=== PATIENT | female | born 1980 | race Hispanic/Latino ===

== ENCOUNTER 2018-06-06 18:40 | Emergency (ER) | payer BC ==
[2018-06-06] MEDS ORDERED: NA CHLORIDE 0.9% 500 ML ONE (20:41)
[2018-06-06 21:00] LABS: Absolute Lymphocytes (CBC) 4.3 K/uL (0.7-4.9); Absolute Monocytes 0.5 K/uL (0.1-1.3); Absolute Neutrophil 5.2 K/uL (1.8-8.0); Basophils % 0.5 % (0-1.3); Eosinophils % 1.2 % (0-4.4); Hematocrit 34.7 % (36.0-45.0); Lymphocytes % 42.4 % (15.3-44.8); MPV 7.7 fL (7.6-11.3); Monocytes % 4.9 % (3.3-12.3); RBC Red Blood Cell Count 4.89 M/uL (3.86-4.86)
[2018-06-06 21:04] LABS: Protime INR 0.92
[2018-06-06] MEDS ORDERED: ASPIRIN 81 MG CHEWABLE TABLET ONE (21:05)
[2018-06-06 21:07] LABS: Urine Blood 1+ (NEG); Urine Glucose NEGATIVE (NEG); Urine Protein NEGATIVE (NEG); Urine Specific Gravity 1.025 (1.005-1.030); Urine pH 5.5 (5.0-7.0)
[2018-06-06 21:12] LABS: ALT/SGPT 63 U/L (12-78); AST/SGOT 27 U/L (15-37); Albumin 3.7 g/dL (3.4-5.0); Alkaline Phosphatase 104 U/L (45-117); BUN Blood Urea Nitrogen 16 mg/dL (7-18); Bicarbonate 27 mmol/L (21-32); Bilirubin Direct 0.1 mg/dL (0-0.2); Bilirubin Total 0.5 mg/dL (0.2-1.0); Glucose Level 94 mg/dL (74-106); Lipase 133 U/L (73-393); Magnesium 2.1 mg/dL (1.8-2.4); NT PRO-BNP 7 pg/mL (<125); Potassium 4.1 mmol/L (3.5-5.1); Protein, Total 8.1 g/dL (6.4-8.2); Sodium Level 138 mmol/L (136-145); Troponin (Emerg Dept Use Only) < 0.02 ng/mL (0.0-0.045)
--- NOTE | 2018-06-06 21:44 | RAD REPORT ---
EXAM DESCRIPTION: RAD - Chest Single View - 06/06/2018 9:29 pm CLINICAL HISTORY: CHEST PAIN Chest pain. COMPARISON: Chest Single View dated 11/02/2016 FINDINGS: Portable technique limits examination quality. The lungs are grossly clear. The heart is normal in size. No displaced fractures. IMPRESSION: No acute intrathoracic process suspected.
--- NOTE | 2018-06-06 21:56 | ER ---
Nurse's Notes [facility] Name: Karina Renteria Age: 38 yrs Sex: Female : 1980 Arrival Date: 06/06/2018 Time: 18:41 Bed 24 Private MD: Obey Murillo Diagnosis: Chest pain, unspecified-wall;Anemia, unspecified Presentation: 06/06 18:45 Presenting complaint: Patient states: Upper abdominal pain that radiates to chest for 2 aj weeks. Patient also reports tingling in left hand that started 1 week ago. Transition of care: patient was not received from another setting of care. Onset of symptoms was May 26, 2018. Risk Assessment: Do you want to hurt yourself or someone else? Patient reports no desire to harm self or others. Initial Sepsis Screen: Does the patient meet any 2 criteria? No. Patient's initial sepsis screen is negative. Does the patient have a suspected source of infection? No. Patient's initial sepsis screen is negative. Care prior to arrival: None. 18:45 Method Of Arrival: Ambulatory aj 18:45 Acuity: LES 3 aj Triage Assessment: 18:47 General: Appears in no apparent distress. comfortable, Behavior is calm, cooperative, aj appropriate for age. Pain: Complains of pain in chest and abdomen. Neuro: Level of Consciousness is awake, alert, obeys commands, Oriented to person, place, time, situation, Appropriate for age. Neuro: Reports paresthesias in left hand. Cardiovascular: Reports chest pain. Respiratory: Reports shortness of breath Airway is patent Respiratory effort is even, unlabored, Respiratory pattern is regular, symmetrical, Onset: The symptoms/episode began/occurred gradually, the patient has mild shortness of breath. GI: Abdomen is obese, Reports upper abdominal pain. Derm: Skin is intact, is healthy with good turgor, Skin is pink, warm \T\ dry. normal. 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 - Social history:: Smoking status: Patient/guardian denies using tobacco. - Ebola Screening: : Patient negative for fever greater than or equal to 101.5 degrees Fahrenheit, and additional compatible Ebola Virus Disease symptoms Patient denies exposure to infectious person Patient denies travel to an Ebola-affected area in the 21 days before illness onset No symptoms or risks identified at this time. - Family history:: not pertinent. Screenin:37 Abuse screen: Denies threats or abuse. Denies injuries from another. Nutritional rv screening: No deficits noted. Tuberculosis screening: No symptoms or risk factors identified. Fall Risk None identified. Assessment: 19:36 General: Appears in no apparent distress. comfortable, Behavior is calm, cooperative. rv Pain: Complains of pain in abdomen and chest. Neuro: Level of Consciousness is awake, alert, obeys commands, Oriented to person, place, time, situation. Cardiovascular: Rhythm is regular. Respiratory: Airway is patent Breath sounds are clear bilaterally. GI: No signs and/or symptoms were reported involving the gastrointestinal system. : No signs and/or symptoms were reported regarding the genitourinary system. EENT: No signs and/or symptoms were reported regarding the EENT system. Derm: Skin is intact. Musculoskeletal: No signs and/or symptoms reported regarding the musculoskeletal system. Vital Signs: 18:47 BP 146 / 85; Pulse 98; Resp 20; Temp 98.2; Pulse Ox 99% on R/A; Weight 90.72 kg; Height aj 5 ft. 5 in. (165.10 cm); 19:30 BP 105 / 73; Pulse 84; Resp 16; Pulse Ox 99% on R/A; rv 20:00 BP 100 / 66; Pulse 84; Resp 15 S; Pulse Ox 98% on R/A; rv 20:45 BP 100 / 57; Pulse 79; Resp 18; Pulse Ox 99% on R/A; rv 21:00 BP 109 / 71; Pulse 84; Resp 17; Pulse Ox 99% on R/A; rv 21:30 BP 101 / 53; Pulse 77; Resp 19 S; Pulse Ox 99% on R/A; rv 21:45 BP 107 / 54; Pulse 82; Resp 16 S; Pulse Ox 99% on R/A; rv 18:47 Body Mass Index 33.28 (90.72 kg, 165.10 cm) ED Course: 18:41 Patient arrived in ED. rg4 18:42 Obey Murillo MD is Private Physician. rg4 18:46 Triage completed. aj 18:47 Arm band placed on left wrist. Patient placed in an exam room. aj 19:12 Tommy Singh MD is Attending Physician. [facility] 19:37 Patient has correct armband on for positive identification. Bed in low position. Call rv light in reach. Side rails up X 1. Adult w/ patient. phototypesetting equipment monitor on. Pulse ox on. NIBP on. 20:40 Inserted saline lock: 20 gauge in left antecubital area, using aseptic technique. Blood rv collected. 21:22 X-ray completed. Portable x-ray completed in exam room. Patient tolerated procedure ag1 well. 21:29 XRAY Chest (1 view) In Process Unspecified. EDMS 21:56 Obey Murillo MD is Referral Physician. alek 21:56 Jerzy Chavarria MD is Referral Physician. alek 22:07 No provider procedures requiring assistance completed. IV discontinued, bleeding rv controlled, No redness/swelling at site. Pressure dressing applied. Administered Medications: 20:40 Drug: NS 0.9% 500 ml Route: IV; Rate: bolus; Site: left antecubital; rv 20:55 Drug: Aspirin 81 mg Route: PO; rv Outcome: 21:56 Discharge ordered by . alek 22:07 Discharged to home ambulatory. rv 22:07 Condition: good 22:07 Discharge instructions given to patient, family, Instructed on discharge instructions, follow up and referral plans. Demonstrated understanding of instructions, follow-up care, medications, Prescriptions given X 1. 22:07 Patient left the ED. rv Signatures: Dispatcher [employer] Elenita Garcia, RN RN Tommy Gar MD MD cha Gallaway, Ashley ag1 Joanne Flores rg4 Allen Mosquera RN RN rv
--- NOTE | 2018-06-06 21:57 | EDPHYS ---
Physician Documentation [facility] Name: Karina Renteria Age: 38 yrs Sex: Female : 1980 Arrival Date: 06/06/2018 Time: 18:41 Bed 24 Private MD: Obey Murillo ED Physician Tommy Singh HPI: 06/06 20:26 This 38 yrs old Female presents to ER via Ambulatory with complaints of alek Numbness Of Arm, Breathing Difficulty, Back Pain. 20:26 The patient or guardian complains of pain, that is acute. alek 20:27 The complaints affect the left hand. Context: The problem was sustained at home. Onset: alek The symptoms/episode began/occurred 5 day(s) ago. Treatment prior to arrival includes: no previous treatment. The patient or guardian reports chest pain that is located primarily in the anterior chest wall, left. The pain does not radiate. 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 - Social history:: Smoking status: Patient/guardian denies using tobacco. - Ebola Screening: : Patient negative for fever greater than or equal to 101.5 degrees Fahrenheit, and additional compatible Ebola Virus Disease symptoms Patient denies exposure to infectious person Patient denies travel to an Ebola-affected area in the 21 days before illness onset No symptoms or risks identified at this time. - Family history:: not pertinent. ROS: 20:27 Constitutional: Negative for fever, chills, and weight loss, Eyes: Negative for injury, alek pain, redness, and discharge, ENT: Negative for injury, pain, and discharge, Neck: Negative for injury, pain, and swelling, Respiratory: Negative for shortness of breath, cough, wheezing, and pleuritic chest pain, Abdomen/GI: Negative for abdominal pain, nausea, vomiting, diarrhea, and constipation, Back: Negative for injury and pain, : Negative for injury, bleeding, discharge, and swelling, MS/Extremity: Negative for injury and deformity, Skin: Negative for injury, rash, and discoloration, Psych: Negative for depression, anxiety, suicide ideation, homicidal ideation, and hallucinations, Allergy/Immunology: Negative for hives, rash, and allergies, Endocrine: Negative for neck swelling, polydipsia, polyuria, polyphagia, and marked weight changes, Hematologic/Lymphatic: Negative for swollen nodes, abnormal bleeding, and unusual bruising. 20:27 Cardiovascular: Positive for chest pain. Exam: 20:27 Constitutional: This is a well developed, well nourished patient who is awake, alert, alek and in no acute distress. Head/Face: Normocephalic, atraumatic. Eyes: Pupils equal round and reactive to light, extra-ocular motions intact. Lids and lashes normal. Conjunctiva and sclera are non-icteric and not injected. Cornea within normal limits. Periorbital areas with no swelling, redness, or edema. ENT: Nares patent. No nasal discharge, no septal abnormalities noted. Tympanic membranes are normal and external auditory canals are clear. Oropharynx with no redness, swelling, or masses, exudates, or evidence of obstruction, uvula midline. Mucous membranes moist. Neck: Trachea midline, no thyromegaly or masses palpated, and no cervical lymphadenopathy. Supple, full range of motion without nuchal rigidity, or vertebral point tenderness. No Meningismus. Chest/axilla: Normal chest wall appearance and motion. Nontender with no deformity. No lesions are appreciated. Cardiovascular: Regular rate and rhythm with a normal S1 and S2. No gallops, murmurs, or rubs. Normal PMI, no JVD. No pulse deficits. Respiratory: Lungs have equal breath sounds bilaterally, clear to auscultation and percussion. No rales, rhonchi or wheezes noted. No increased work of breathing, no retractions or nasal flaring. Abdomen/GI: Soft, non-tender, with normal bowel sounds. No distension or tympany. No guarding or rebound. No evidence of tenderness throughout. Back: No spinal tenderness. No costovertebral tenderness. Full range of motion. Skin: Warm, dry with normal turgor. Normal color with no rashes, no lesions, and no evidence of cellulitis. MS/ Extremity: Pulses equal, no cyanosis. Neurovascular intact. Full, normal range of motion. Neuro: Awake and alert, GCS 15, oriented to person, place, time, and situation. Cranial nerves II-XII grossly intact. Motor strength 5/5 in all extremities. Sensory grossly intact. Cerebellar exam normal. Normal gait. Psych: Awake, alert, with orientation to person, place and time. Behavior, mood, and affect are within normal limits. 20:27 Musculoskeletal/extremity: ROM: intact in all extremities, full active range of motion, full passive range of motion, Circulation is intact in all extremities. Sensation intact. Compartment Syndrome exam of affected extremity: is normal. DVT Exam: No signs of deep vein thrombosis. no pain, no swelling, no tenderness, negative Homans' sign noted on exam, no appreciated bluish discoloration, no erythema, no increased warmth. Vital Signs: 18:47 BP 146 / 85; Pulse 98; Resp 20; Temp 98.2; Pulse Ox 99% on R/A; Weight 90.72 kg; Height aj 5 ft. 5 in. (165.10 cm); 19:30 BP 105 / 73; Pulse 84; Resp 16; Pulse Ox 99% on R/A; rv 20:00 BP 100 / 66; Pulse 84; Resp 15 S; Pulse Ox 98% on R/A; rv 20:45 BP 100 / 57; Pulse 79; Resp 18; Pulse Ox 99% on R/A; rv 21:00 BP 109 / 71; Pulse 84; Resp 17; Pulse Ox 99% on R/A; rv 21:30 BP 101 / 53; Pulse 77; Resp 19 S; Pulse Ox 99% on R/A; rv 21:45 BP 107 / 54; Pulse 82; Resp 16 S; Pulse Ox 99% on R/A; rv 18:47 Body Mass Index 33.28 (90.72 kg, 165.10 cm) aj MDM: 19:12 Patient medically screened. [facility] 20:29 Data reviewed: vital signs, nurses notes, lab test result(s), EKG, radiologic studies, [facility] plain films. 06/06 20:26 Order name: Basic Metabolic Panel; Complete Time: 21:14 [facility] 06/06 20:26 Order name: CBC with Diff; Complete Time: 21:14 [facility] 06/06 20:26 Order name: LFT's; Complete Time: 21:14 [facility] 06/06 20:26 Order name: Magnesium; Complete Time: 21:14 [facility] 06/06 20:26 Order name: NT PRO-BNP; Complete Time: 21:14 [facility] 06/06 20:26 Order name: PT-INR; Complete Time: 21:14 [facility] 06/06 20:26 Order name: Troponin (emerg Dept Use Only); Complete Time: 21:14 [facility] 06/06 20:26 Order name: XRAY Chest (1 view); Complete Time: 21:48 [facility] 06/06 20:26 Order name: Lipase; Complete Time: 21:14 [facility] 06/06 20:26 Order name: D-Dimer; Complete Time: 21:14 [facility] 06/06 20:26 Order name: Urine Culture [facility] 06/06 20:52 Order name: Urine Dipstick--Ancillary (enter results); Complete Time: 21:14 ag4 06/06 20:52 Order name: Urine --Ancillary (enter results); Complete Time: 21:14 [facility] 06/06 20:26 Order name: EKG; Complete Time: 20:27 [facility] 06/06 20:26 Order name: Cardiac monitoring; Complete Time: 20:29 [facility] 06/06 20:26 Order name: EKG - Nurse/Tech; Complete Time: 20:30 [facility] 06/06 20:26 Order name: IV Saline Lock; Complete Time: 20:46 [facility] 06/06 20:26 Order name: Labs collected and sent; Complete Time: 20:46 [facility] 06/06 20:26 Order name: O2 Per Protocol; Complete Time: 20:46 [facility] 06/06 20:26 Order name: O2 Sat Monitoring; Complete Time: 20:46 [facility] 06/06 20:26 Order name: Urine Dipstick-Ancillary (obtain specimen); Complete Time: 20:47 [facility] 06/06 20:26 Order name: Urine Test (obtain specimen); Complete Time: 20:47 [facility] Administered Medications: 20:40 Drug: NS 0.9% 500 ml Route: IV; Rate: bolus; Site: left antecubital; rv 20:55 Drug: Aspirin 81 mg Route: PO; rv Disposition: 06/06/18 21:56 Discharged to Home. Impression: Chest pain, unspecified - wall, Anemia, unspecified. - Condition is Stable. - Discharge Instructions: Nonspecific Chest Pain, Chest Wall Pain, Chest Wall Pain, [id number], Nonspecific Chest Pain, [id number]-[id number], Aspirin and Your Heart. - Prescriptions for Pepcid 20 mg Oral Tablet - take 1 tablet by ORAL route every 12 hours for 10 days; 20 tablet. - Medication Reconciliation Form, Thank You Letter, Antibiotic Education, Prescription Opioid Use form. - Follow up: Obey Murillo; When: 2 - 3 days; Reason: Recheck today's complaints, Continuance of care, Re-evaluation by your physician. Follow up: Jerzy Chavarria; When: 2 - 3 days; Reason: Recheck today's complaints, Re-evaluation by your physician. - Problem is new. - Symptoms have improved. Signatures: Dispatcher [employer] EDElenita Floyd RN RN Tommy Gar MD MD cha Vicente, Ronaldo, RN RN rv Corrections: (The following items were deleted from the chart) 22:07 21:56 06/06/2018 21:56 Discharged to Home. Impression: Chest pain, unspecified - wall; rv Anemia, unspecified. Condition is Stable. Discharge Instructions: Nonspecific Chest Pain, Chest Wall Pain, Chest Wall Pain, [id number], Nonspecific Chest Pain, Masb-ez-[id number], Aspirin and Your Heart. Prescriptions for Pepcid 20 mg Oral Tablet - take 1 tablet by ORAL route every 12 hours for 10 days; 20 tablet. and Forms are Medication Reconciliation Form, Thank You Letter, Antibiotic Education, Prescription Opioid Use. Follow up: Obey Murillo; When: 2 - 3 days; Reason: Recheck today's complaints, Continuance of care, Re-evaluation by your physician. Follow up: Jerzy Chavarria; When: 2 - 3 days; Reason: Recheck today's complaints, Re-evaluation by your physician. Problem is new. Symptoms have improved. alek
--- NOTE | 2018-06-07 06:59 | EKG ---
Test Date: 2018-06-06 Test Time: 19:23:40 Antique Finisher: PHILIPPE MEASUREMENT RESULTS: Intervals: Rate: 85 CA: 140 QRSD: 72 QT: 354 QTc: 421 Marks: P: 36 CA: 140 QRS: 20 T: 8 INTERPRETIVE STATEMENTS: Normal sinus rhythm Normal ECG Compared to ECG 11/02/2016 12:25:10 No significant changes Electronically Signed On 06-07-18 06:51:49 MARKETING DIRECTOR by Dg Hobbs
== END 2018-06-06 22:07 | disposition home or self-care (01) ==
LOC: ER 18:40
DX: R07.9 Chest pain, unspecified (principal); D64.9 Anemia, unspecified
CPT/HCPCS: 36415; 71045; 80048; 80076; 81003; 81025; 83690; 83735; 83880; 84484; 85025; 85379; 85610; 87086; 87088; 93005; 99284

== ENCOUNTER 2024-06-28 06:11 | Day surgery (SDC) | payer BC ==
[2024-06-25 11:59] LABS: Specific Gravity 1.009 (1.005-1.030); Sqamous Epithelial <5 /HPF (None Seen); Urine Bacteria <20 /HPF (<20); Urine Bilirubin NEGATIVE (Negative); Urine Blood Negative (Negative); Urine Clarity Turbid (Clear); Urine Color Colorless (Yellow); Urine Culture Reflex Order NOT NEEDED; Urine Glucose NEGATIVE (Negative); Urine Ketones NEGATIVE (Negative); Urine Microscopic Reflex YN ORDER UMIC; Urine Nitrite NEGATIVE (Negative); Urine Protein NEGATIVE (Negative); Urine RBC <5 /HPF (None Seen); Urine Urobilinogen Normal (Normal); Urine WBC <5 /HPF (<5)
[2024-06-25 12:07] LABS: Absolute Basophils 0.1 K/uL (0-0.5); Absolute Eosinophils 0.1 K/uL (0-0.5); Absolute Lymphocytes (CBC) 3.8 K/uL (0.7-4.9); Absolute Monocytes 0.4 K/uL (0.1-1.3); Absolute Neutrophil 5.2 K/uL (1.8-8.0); Basophils % 0.6 % (0-1.3); Eosinophils % 0.7 % (0-4.4); Hematocrit 33.7 % (36.0-45.0); Hemoglobin 10.7 g/dL (12.0-15.0); Lymphocytes % 39.8 % (15.3-44.8); MCH 21.7 pg (27.0-35.0); MCHC 31.8 g/dL (32.0-36.0); MCV 68.3 fL (80-100); MPV 7.5 fL (7.6-11.3); Monocytes % 4.3 % (3.3-12.3); Neutrophils % 54.6 % (41.7-73.7); Platelets 385 thou/uL (152-406); RBC Red Blood Cell Count 4.94 M/uL (3.86-4.86); Red Cell Distribution Width 18.1 % (12.1-15.2)
[2024-06-25 13:37] LABS: Blood Morphology Comment NOTED (NOT SEEN); Microcytosis 1+; Platelet Estimate ADEQ; White Blood Cell Scan OK (OK)
[2024-06-25 13:38] LABS: Hypochromasia 1+; Polychromasia 1+
[2024-06-28] MEDS ORDERED: CEFAZOLIN SODIUM 1 GM/VIAL ONE (06:47)
[2024-06-28] MEDS: SCOPOLAMINE HYDROBROMIDE PATCH TD ONE (06:50)
[2024-06-28] MEDS: Ringers Lactate 1,000 ML IV ONE ×2 (07:00→09:15)
[2024-06-28] MEDS ORDERED: MIDAZOLAM HCL 2 MG/2 ML INJ ONE (07:11)
[2024-06-28] MEDS ORDERED: LIDOCAINE 2% MPF 5 ML VIAL ONE (07:11)
[2024-06-28] MEDS ORDERED: FENTANYL CITR 100 MCG/2 ML ONE ×3 (07:11→10:19)
[2024-06-28] MEDS ORDERED: ROCURONIUM 50 MG/5 ML VIAL IV ONE ×2 (07:11→08:11)
[2024-06-28] MEDS ORDERED: propofoL 200 MG/20 ML VIAL IV ONE (07:11)
[2024-06-28] MEDS: CEFAZOLIN SODIUM 2 GM/VIAL ONE (07:44)
[2024-06-28] MEDS ORDERED: GLYCOPYRROLATE 0.2 MG/ML SYR ONE (07:59)
[2024-06-28] MEDS ORDERED: ONDANSETRON 4 MG/2 ML VIAL ONE (07:59)
[2024-06-28] MEDS: BUPIVACAINE 0.25% PF 30 ML VIAL ONE (08:09)
[2024-06-28] MEDS ORDERED: dexAMETHasone 10 MG/ML VIAL ONE (08:14)
[2024-06-28] MEDS ORDERED: KETOROLAC 30 MG/ML INJ ONE (08:14)
[2024-06-28] MEDS ORDERED: NEOSTIGMINE 1 MG/ML -10 ML VIAL ONE (08:40)
[2024-06-28] MEDS ORDERED: MEPERIDINE HCL 25 MG/ML SYR ONE (09:20)
[2024-06-28] MEDS ORDERED: METHYLENE BLUE 1% 10 ML VIAL ONE (09:37)
[2024-06-28] MEDS ORDERED: MORPHINE 10 MG/ML VIAL ONE (09:48)
[2024-06-28] MEDS ORDERED: Mastisol Adhesive Liq ONE (10:04)
[2024-06-28] MEDS ORDERED: SUGAMMADEX SODIUM 200 MG/2 ML VIAL IV ONE (11:05)
[2024-06-28] MEDS ORDERED: PROMETHAZINE 25 MG TABLET PO PRN (11:39)
[2024-06-28] MEDS ORDERED: IBUPROFEN 200 MG TAB PO PRN (11:39)
[2024-06-28] MEDS ORDERED: MEPERIDINE HCL 25 MG/ML SYR IM PRN (11:39)
[2024-06-28] MEDS: HYDROMORPHONE HCL 1 MG/ML INJ ONE (11:40)
--- NOTE | 2024-06-28 11:45 | P.BOP ---
Preoperative diagnosis: AUB-L, dysmenorrhea Postoperative diagnosis: same, bladder omental adhesions Primary procedure: TLH BS vag morcellation, DELONTE bladder omentum, bladder oversewn Secondary procedure: cysto Cutter Machine: Aditi Brown Estimated blood loss: 25 Specimen: uterus and bilateral tubes Findings: lg fibroid,ut morcell,bladder significant adhesions:neg leak w meth blue Anesthesia: General Complications: None Fluids & blood products: LR 1200/ 200 UO Transferred to: Recovery Room Condition: Good
[2024-06-28] MEDS ORDERED: PROMETHAZINE INJ 25 MG/ML AMP ONE (12:22)
[2024-06-28] MEDS: PROMETHAZINE INJ 25 MG/ML AMP IV PRN (12:50)
[2024-06-28] MEDS ORDERED: HYDROCODONE/APAP 5/325 MG TAB ONE (13:20)
[2024-06-28] MEDS: HYDROCODONE/APAP 5/325 MG TAB PO PRN (13:25)
[2024-06-28 13:41] VITALS: BP 150/89; TEMP 97.2; O2SAT 98
--- NOTE | 2024-06-28 17:00 | EKG ---
Test Date: 2024-06-25 Test Time: 12:35:55 Telecommunications Technician: ELICEO MEASUREMENT RESULTS: Intervals: Rate: 73 MO: 136 QRSD: 76 QT: 380 QTc: 418 [place]: P: 64 MO: 136 QRS: 50 T: 35 INTERPRETIVE STATEMENTS: Normal sinus rhythm ST abnormality, possible digitalis effect Abnormal ECG Compared to ECG 06/06/2018 19:23:40 ST (T wave) deviation now present Electronically Signed On 06-28-24 16:48:30 TRAINING COORDINATOR by Walter Colby
--- NOTE | 2024-06-29 01:37 | OP ---
Date of Procedure: 06/28/2024 Surgeon: Kathia Boothe MD [employer]: Aditi Zaidi. Preoperative Diagnoses: AUB-O, dysmenorrhea. Postoperative Diagnoses: AUB-O, dysmenorrhea. Bladder and omental adhesions. Patient is status pos t 4 sections. Procedures Performed: Total laparoscopic hysterectomy, bilateral salpingectomy, vaginal morcellation for retrieval of specimen and due to the large fibroid, lysis of bladder and omental adhesions that took at least 25 minutes and the bladder was oversewn due to superficial laceration, and cystoscopy. Ebl: 25. Anesthesia: General endotracheal. Specimens: Uterus, bilateral tubes. The uterine specimen was morcellated and the right tube was sep arated from the specimen. Findings: Large intramural fibroid in the anterior wall at least 6 to 7 cm. Uterus was morcellated without any spillage into the peritoneal cavity. Bladder had significant adhesions on the anterior v aginal wall and cystoscopy was performed at the end of the procedure. Prior to which, several bladde r fillings were done to detect any leak, but the bladder was completely leak free. Methylene blue was also used during the retrograde fill test. Ovaries were left intact. Fluids: 1200. Urine Output: 200. Disposition: Transferred to the recovery room in stable condition. Description Of Procedure: The patient is a 44-year-old with 4, para 4, 4 sections, presented with heavy menstrual bleeding. She, on transvaginal ultrasound, found to have a 6 cm intra mural fibroid on hysteroscopy, D and C. She did not have any atypia or malignancy. No adnexal jaqueline s were suspected. Due to her scar that could be potentially weak, she was not a good candid ate for ablation. Discussed the options of an IUD, GnRH antagonist, and all other medical management versus a hysterectomy, bilateral salpingectomy. She wanted to proceed with definitive treatment as dysmenorrhea was also significant component besides the bleeding. We discussed about the risk of julio césar dder injury higher than at baseline for someone with 4 C-sections and the patient understood this, an d she was consented. After informed consent was re-verified in the preoperative area, and questions and answers were done to the satisfaction of the patient and her , she was taken back to the OR and given 2 g of Anc ef. She was then placed in supine fashion. General anesthesia was given, and she was placed in a do rsal lithotomy position. Arms were tucked by the side. The patient was grounded. SCDs were started . The vulva, vagina, and perineum were prepped with Betadine and abdomen with ChloraPrep and draped in a sterile fashion. Time-out was done, and procedure started. Speculum placed to expose the cervix. Anterior lip grasped with 2 Allis clamps and cervix dilated to 16-Canadian. A large cup uterine manipulator was then introduced and fixed in place and Banerjee was use d to drain the bladder and attached to a gravity bag. This area was draped. A 1 cm supraumbilical incision was made with a scalpel using the open laparoscopy technique. Fascia was incised and tagged with 0 Vicryl sutures. Peritoneum entered sharply with the scalpel and then S retractors were used to introduce the Roney. After adequate insufflation, site of entry was checke d and was unremarkable. Two 5 right and left lower quadrant trocars were placed and a 10/12 suprapub ic port was placed as well under direct vision. The patient was then placed in Trendelenburg positio n. Upper abdominal surfaces were mostly unremarkable. Omental adhesions were seen in the area of th e midline above and below the supraumbilical port. I did not take down the adhesions superiorly. Ho wever, the inferior adhesions were then taken down. Lysis of omental adhesions: Using the LigaSure, the adhesions were taken down from the anterior abdo edgar wall then the uterus, right lower quadrant, and right sidewall. Then, there were tubal adhesio ns to the anterior abdominal wall and the omentum. The right distal tube was then taken down from th e right lower quadrant by sharp dissection with the LigaSure. Once all these were taken down, then p roceeded with the hysterectomy. The right tube was dissected. Then, utero-ovarian ligament was taken down and the round ligament was taken down. Anterior broad ligament was opened up and dissected to the level of the left paravesica l space. Posterior peritoneum was then opened up all the way to the uterosacral. The ureter was dis sected laterally and the uterine vessels were identified after taking down the broad ligament with th e LigaSure and the anterior vaginal wall was then dissected with the bladder dissecting inferiorly. There was significant scar tissue here and the scar had to be cut in order for me to expose the anter ior vaginal wall even though I started in the left paravesical space. Once the vessels were exposed, they were cauterized and cut with the LigaSure and then the cardinal ligaments were taken down with the help of the curved tip bipolar and monopolar hook blade. Once this was done and the base of the uterosacral ligament attachment was also cauterized and cut. Then, I went over to the right side, si milar dissection was performed, but I took the 10 port camera and downsized it to a 5 mm camera using the right lower quadrant 5 port operate mostly through the umbilical port and the suprapubic ports. Right tube was taken down, detached and handed out. Utero-ovarian ligament and round ligament were taken down. There was some bleeding from the pedicle of the round on the specimen side. Then, the a nterior peritoneum was opened up to take the dissection to the bladder flap and posteriorly peritoneu m taken down to the uterosacral ligament. Broad ligament was then cauterized and cut. The vessels w ere then exposed. The anterior vaginal wall was well dissected and the vessels were taken down with the help of the bipolar cautery first and then the LigaSure. Then, the cardinal ligaments were also taken down after creating a window medially to use the medium tip bipolar and the hook blade. Once t he entire anterior vaginal wall was well dissected, the bladder was taken down. Bladder adhesions we re taken down. Taking down of the bladder adhesions took at least another 15 minutes. Once the ante rior vaginal wall was dissected sharply, then the bladder was filled and drained with saline. Then, I filled it with methylene blue. There was no evidence of any leakage nor exposure of even the bladd er mucosa. Mostly very small part of the detrusor appeared to be slightly lacerated, but most of it was just scar tissue that was taken down. Once the vessels on both sides and cardinal ligaments were taken down, the anterior vaginal wall was incised with a monopolar hook blade and a circumferential colpotomy was performed. Specimen detached . Vaginal morcellation: The Dunn speculum placed in the posterior aspect and switched to a weighted sp eculum. Anteriorly, a small [place] was used for retraction and mass clamps were used to hold the spe cimen and morcellated with a short handle 10 blade. The specimen was fully morcellated and retrieved through the vagina, handed off for permanent pathology. A vaginal occluder was placed. All instrum ents were removed. This area was draped. After changing my gown and gloves, I went over to the suprapubic site and thorough irrigation suction was performed and the cuff was closed with the help of 2 simple 0 PDS sutures at the angles and 3 fi [id number] in the middle re-attaching the uterosacral to the apex. There was excellent closure a nd support. Thorough irrigation suction was performed. No evidence of electrical, mechanical, or th ermal injury to the ureters or the bowel. The cul-de-sac was cleaned up, and the bowel was inspected and was unremarkable. Ovaries were left intact. The patient was leveled off. All the trocars heraclio ani under direct vision. Gas was desufflated. Umbilical fascia was closed with 0 Vicryl tag sutures tied to each other and suprapubic site closed with simple 0 Vicryl stitch. At the left upper quadra nt, Jozef-Alejandra needle site was just closed with the Steri-Strips. 3-0 Monocryl was used to pick the epiploica of the colon for retraction. The bladder detrusor on the superficial most part was closed in a continuous running fashion with a 3 -0 Monocryl on an SH needle just to over-sew the area of the bladder dissection. There was excellent closure. 0.25% Bupivacaine was injected at the skin and the fascia at all port sites. Once all the bowel was released, then the ports were closed. Banerjee was removed and vaginal occluder was removed. Cystoscopy was performed with a 30 degree lens n ormal saline and a 17-Canadian sheath. There were strong jets of urine from both ureteric orifices. N o evidence of any trauma to the bladder mucosa. Entire bladder was dilated with at least 400-500 mL of normal saline. Bladder was then drained after good jets were seen from both ureteric orifices and no evidence of trauma. The patient was then recovered from anesthesia and taken to PACU in stable c ondition. Her was debriefed about her procedure. TRIPP/LIDIA Voice ID: [id number] Report ID: [id number]
[2024-06-29] MEDS ORDERED: HOME MED 1 EA UNK (Cetirizine Hcl [Zyrtec] 10 MG Tablet) PO SCH (09:00)
[2024-06-29] MEDS ORDERED: MAXZIDE (HCTZ 25/TRIAMTERENE 37.5MG) TAB PO SCH (09:00)
[2024-06-29] MEDS ORDERED: FERROUS SULFATE 325 MG TAB PO SCH (09:00)
== END 2024-06-28 18:10 | disposition home or self-care (01) ==
LOC: OR 06:11
PROVIDERS: ATTEND Obstetrics & Gynecology
PROC: 0UT74ZZ Resection of Bilateral Fallopian Tubes, Percutaneous Endoscopic Approach (ICD-10-PCS; 2024-06-28)
PROC: 0DNU4ZZ Release Omentum, Percutaneous Endoscopic Approach (ICD-10-PCS; 2024-06-28)
PROC: 0TNB4ZZ Release Bladder, Percutaneous Endoscopic Approach (ICD-10-PCS; 2024-06-28)
PROC: 0TQB4ZZ Repair Bladder, Percutaneous Endoscopic Approach (ICD-10-PCS; 2024-06-28)
PROC: 0UT94ZZ Resection of Uterus, Percutaneous Endoscopic Approach (ICD-10-PCS; principal; 2024-06-28 07:30)
DX: D25.9 Leiomyoma of uterus, unspecified (principal); N93.9 Abnormal uterine and vaginal bleeding, unspecified; N88.8 Other specified noninflammatory disorders of cervix uteri; N83.8 Other noninflammatory disorders of ovary, fallopian tube and broad ligament; N94.6 Dysmenorrhea, unspecified; K66.0 Peritoneal adhesions (postprocedural) (postinfection); N32.89 Other specified disorders of bladder; N99.71 Accidental puncture and laceration of a genitourinary system organ or structure during a genitourinary system procedure
CPT/HCPCS: 93005; 85025; 81001; 36415; 86900; 86850; 86901; 88307; 58573; 49329; 53899; J2550; J2704; J2003; J2250; J3010 ×3; J1100; J2175; J1171; J2405; J7120 ×2; A4314; J0690; J2710